=== PATIENT | male | born 1945 | race Caucasian/White ===

== ENCOUNTER 2020-07-27 13:34 | Inpatient (IN) | payer MEDICARE, BC ==
[~2020-07-27] VITALS: Ht 172.7 cm; Wt 71.4 kg
[~2020-07-27 13:34] MED LIST: BAYER CHEWABLE81 MG PO; HEMOCYTE PLUS C1 CAP PO; LOPRESSOR25 MG PO; MUCINEX DM ER1 EAC1 PO; PERCOCET 5-3251 TAB PO; ULTRAM50 MG PO
[2020-07-31 08:38] LABS: CALC OSMOLALITY 277 mosm/kg (275-300); CALCIUM 8.9 mg/dL (8.5-10.1); CARBON DIOXIDE 28.7 mmol/L (21.0-32.0); CHLORIDE - SERUM 105 mmol/L (98-107); CREATININE - SERUM 0.9 mg/dL (0.6-1.3); GLUCOSE 83 mg/dL (74-106); POTASSIUM - SERUM 3.8 mmol/L (3.5-5.1); SODIUM 138 mmol/L (136-145); UREA NITROGEN 20 mg/dL (7-18); eGFR NON AFRICAN AMERICAN 88 mL/min (90-120)
[2020-07-31 08:54] LABS: BASOPHILS 0.7 % (0-2); EOSINOPHILS 3.6 % (0-7); HEMATOCRIT 38.7 % (42.0-54.0); HEMOGLOBIN 12.7 g/dL (13.5-17.5); LYMPHOCYTES 38.4 % (15-50); MCH 28.3 pg (26.0-34.0); MCHC 32.7 g/dL (31.0-37.0); MCV 86.6 fL (80.0-100.0); MEAN PLATELET VOLUME 7.8 fL (7.4-10.4); MONOCYTES 11.6 % (2-11); NEUTROPHILS 45.7 % (40-80); RBC 4.47 10x6/uL (4.20-6.10); RDW 14.9 % (11.5-14.5); WBC 3.3 10x3/uL (4.8-10.8)
[2020-07-31 09:24] LABS: PLATELET COUNT 170 10x3/uL (130-400)
[2020-07-31] MEDS ORDERED: LOPRESSOR25 MG (10:07)
[2020-08-01] VITALS (7 sets, daily range): BP systolic 125–148; BP diastolic 67–86; Ht 172.7 cm; Wt 71.4 kg
[2020-08-02] VITALS: BP 111/56
--- NOTE | 2020-08-02 03:13 | NUR ---
I have reviewed this patient and I concur with the Shift Assessment completed by the Licensed Practical Nurse today this shift.
[2020-08-02 04:00] VITALS: BP 118/63
[2020-08-02 06:13] LABS: BASOPHILS 0.4 % (0-2); EOSINOPHILS 0 % (0-7); HEMATOCRIT 36.4 % (42.0-54.0); HEMOGLOBIN 12.3 g/dL (13.5-17.5); LYMPHOCYTES 13.7 % (15-50); MCH 29.2 pg (26.0-34.0); MCHC 33.8 g/dL (31.0-37.0); MCV 86.2 fL (80.0-100.0); MEAN PLATELET VOLUME 8.2 fL (7.4-10.4); MONOCYTES 3.3 % (2-11); NEUTROPHILS 82.6 % (40-80); PLATELET COUNT 142 10x3/uL (130-400); RBC 4.22 10x6/uL (4.20-6.10); RDW 14.6 % (11.5-14.5)
[2020-08-02 06:19] LABS: WBC 8.9 10x3/uL (4.8-10.8)
[2020-08-02 06:27] LABS: CALC OSMOLALITY 276 mosm/kg (275-300); CALCIUM 8.1 mg/dL (8.5-10.1); CARBON DIOXIDE 24.6 mmol/L (21.0-32.0); CHLORIDE - SERUM 104 mmol/L (98-107); CREATININE - SERUM 0.9 mg/dL (0.6-1.3); GLUCOSE 99 mg/dL (74-106); POTASSIUM - SERUM 3.9 mmol/L (3.5-5.1); SODIUM 138 mmol/L (136-145); eGFR NON AFRICAN AMERICAN 88 mL/min (90-120)
[2020-08-02 06:28] LABS: UREA NITROGEN 14 mg/dL (7-18)
[2020-08-02 08:25] VITALS: BP 128/70
--- NOTE | 2020-08-02 08:25 | NUR ---
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
--- NOTE | 2020-08-02 11:31 | NUR ---
MEDEIROS REMOVED, TIP INTACT, PT TOLERATED WELL, 1700mL OUT
[2020-08-02 12:58] VITALS: BP 114/65
--- NOTE | 2020-08-02 14:32 | NUR ---
PT WITH PT NOW
[2020-08-02 17:47] VITALS: BP 142/81
[2020-08-02 20:00] VITALS: BP 148/80
--- NOTE | 2020-08-03 02:54 | NUR ---
PT IS AWAKE AND ALERT IN BED. HE COMPLAIN OF PAIN IN HIS LOWER BACK AND INCISION, PT WAS HELP TO REPOSITION IN BED AND HE OBTAINED SOME RELIEF. PT EXPRESS NO OTHER NEEDS AT THE MOMENT.
[2020-08-03 04:00] VITALS: BP 125/67
[2020-08-03 05:58] LABS: BASOPHILS 0.4 % (0-2); EOSINOPHILS 0.4 % (0-7); HEMATOCRIT 35.2 % (42.0-54.0); HEMOGLOBIN 11.7 g/dL (13.5-17.5); LYMPHOCYTES 13.9 % (15-50); MCH 28.7 pg (26.0-34.0); MCHC 33.2 g/dL (31.0-37.0); MCV 86.5 fL (80.0-100.0); MEAN PLATELET VOLUME 8.1 fL (7.4-10.4); MONOCYTES 5.7 % (2-11); NEUTROPHILS 79.6 % (40-80); PLATELET COUNT 134 10x3/uL (130-400); RBC 4.06 10x6/uL (4.20-6.10); RDW 14.8 % (11.5-14.5)
[2020-08-03 06:16] LABS: CALC OSMOLALITY 273 mosm/kg (275-300); CALCIUM 8.1 mg/dL (8.5-10.1); CARBON DIOXIDE 24.8 mmol/L (21.0-32.0); CHLORIDE - SERUM 104 mmol/L (98-107); CREATININE - SERUM 0.8 mg/dL (0.6-1.3); GLUCOSE 78 mg/dL (74-106); POTASSIUM - SERUM 3.7 mmol/L (3.5-5.1); SODIUM 137 mmol/L (136-145); UREA NITROGEN 15 mg/dL (7-18); eGFR NON AFRICAN AMERICAN > 90 mL/min (90-120)
--- NOTE | 2020-08-03 07:46 | NUR ---
PT LAYING IN BED RESTING WITH EYES CLOSED, NO SIGNS OF DISTRESS, RECEIVED REPORT FROM NIGHT RN
[2020-08-03 08:25] VITALS: BP 118/78
--- NOTE | 2020-08-03 11:16 | NUR ---
PATIENT WALKED 250 FEET WHILE PUSHING IV POLE WITH JUST CGA-SBA FOR SAFETY.
[2020-08-03 13:01] VITALS: BP 122/70
[2020-08-03 17:18] VITALS: BP 109/76
[2020-08-03 20:00] VITALS: BP 143/85
[2020-08-04] VITALS: BP 143/85
[2020-08-04 04:00] VITALS: BP 144/84
[2020-08-04 06:22] LABS: BASOPHILS 0.5 % (0-2); HEMOGLOBIN 11.6 g/dL (13.5-17.5); LYMPHOCYTES 22.1 % (15-50); MCH 29.2 pg (26.0-34.0); MCHC 34.1 g/dL (31.0-37.0); MCV 85.5 fL (80.0-100.0); MONOCYTES 6.4 % (2-11); PLATELET COUNT 142 10x3/uL (130-400); RBC 3.98 10x6/uL (4.20-6.10); RDW 14.7 % (11.5-14.5)
[2020-08-04 06:30] LABS: CALC OSMOLALITY 268 mosm/kg (275-300); CHLORIDE - SERUM 102 mmol/L (98-107); CREATININE - SERUM 0.7 mg/dL (0.6-1.3); GLUCOSE 82 mg/dL (74-106); POTASSIUM - SERUM 3.2 mmol/L (3.5-5.1); SODIUM 135 mmol/L (136-145); UREA NITROGEN 12 mg/dL (7-18); eGFR NON AFRICAN AMERICAN > 90 mL/min (90-120)
[2020-08-04 06:31] LABS: CALCIUM 8.3 mg/dL (8.5-10.1); CARBON DIOXIDE 25.6 mmol/L (21.0-32.0)
[2020-08-04 08:15] VITALS: BP 147/79
--- NOTE | 2020-08-04 09:28 | OP ---
PATIENT NAME: ROMA CORBIN MEDICAL RECORD: [id number] :45 LOCATION:[id number] ADMISSION DATE:08/01/20 SURGEON: DEVON CEJA MD DATE OF OPERATION: 08/01/2020 PREOPERATIVE DIAGNOSES: 1. Rectosigmoid cancer. 2. Coronary artery disease. 3. Umbilical hernia. POSTOPERATIVE DIAGNOSES: 1. Rectosigmoid cancer. 2. Coronary artery disease. 3. Umbilical hernia. PROCEDURE: Low anterior resection. SURGEON: Devon Ceja MD DESCRIPTION OF PROCEDURE: The patient's abdomen was prepped and draped in sterile fashion. Incision was made through the midline of the lower abdomen. Electrocautery was used to dissect through the subcutaneous tissues and entered the fascia into the abdominal cavity. The patient did have a small umbilical hernia and this was incorporated in our incision. As we opened up the abdominal cavity, we could immediately see the tattooing of the proximal rectum and a mass that was present at the rectosigmoid junction and proximal rectum. This was tethering in the tissues of the rectum, but was not adherent to any surrounding structures. We cleared off an area on the mid rectum and took down any fatty adhesions that were present. Once we did this, then we made an opening on the mesorectum and fired a 45 blue load Endo-ISAIAH stapler across the mid rectum. We then took down the mesentery using a sequential clamp and tie technique, taking down the superior hemorrhoidal vessel and eventually came to the mid sigmoid colon and transected the bowel using a 45 blue load ISAIAH stapler. Once we had the bowel completely excluded from the surrounding tissues, then it was sent off for permanent specimen. The distal aspect of the lateral white line of Toldt was taken down and we mobilized the distal colon medially. At this point, it would rest easily into the patient's pelvis. We then opened up the distal colon, placed a 2-0 Prolene in a pursestring fashion and then inserted a 29 EEA stapler. The multiple dilators were placed through the patient's rectum and we eventually placed the 29 EEA stapler. An end-to-end anastomosis was performed with the stapler and at the conclusion of this we had 2 complete rings of tissue. We then checked the anastomosis under water by instilling air through the rectum and there were no signs of any leakage. I then oversew the staple line using a number of Lemberted 3-0 silks. The abdomen was then irrigated out with normal saline and care was taken to assure there was no sign of any bleeding. The fascia was then closed with running #1 looped PDS times 2 including the small umbilical hernia. The subcutaneous tissues were irrigated out and then reapproximated with interrupted 3-0 Vicryl. The umbilicus was tacked down to the fascia with a single interrupted 3-0 Vicryl. The skin was closed with zulma and dressed appropriately. COMPLICATIONS: None. CONDITION: Stable. OPERATIVE REPORT [id number] ROMA CORBIN ANESTHESIA: General endotracheal. BLOOD LOSS: 50 mL. TRANSINT:[id number] Voice Confirmation ID: [id number] DOCUMENT ID: [id number] DEVON CEJA MD at 0928 CC: GUERO VEGA MD and MIGUEL A VALERO DO [id number] DICTATION DATE: 08/01/20957 DIGITAL CONTROLS TECHNICAL OFFICER: 08/01/[address] [facility] [address] [place] [address]
[2020-08-04] MEDS ORDERED: HYDROCODON-ACE1 EA10 PO (11:32)
[2020-08-04 11:43] VITALS: BP 134/80
--- NOTE | 2020-08-04 13:55 | NUR ---
DISCHARGE INSTRUCTIONS REVIEWED AND SIGNED WITH PT AND SPOUSE, ALL QUESTIONS ANSWERED, PT VERBALIZES UNDERSTANDING, IV REMOVED, TIP INTACT, COVERED WITH GAUZE AND TAPE, TRANSPORT CALLED TO ASSIST PT OUT
--- NOTE | 2020-08-04 14:36 | NUR ---
walked patient 250 feet using ivpole patient had no alarm in the bed
--- NOTE | 2020-08-04 14:41 | MORECARE ---
CASE MANAGEMENT DISCHARGE SUMMARY PATIENT: ROMA CORBIN UNIT: [id number] ADM DATE: 08/01/20 AGE: 74 : 45 SEX: M ROOM/BED: D.2234 AUTHOR: ANITHA,DOC PHYSICIAN: REFERRING PHYSICIAN: ELIE CEJA MD DATE OF SERVICE: 08/04/20 Case Management Discharge Planning Summary COMMENTS ENTERED DATE: 08/04/20 14:41 CT COMMENT TYPE: Discharge Planning REVIEWER: Yuki Jeff PATIENT DISCHARGED HOME TODAY, PER HIS NURSE HE IS INDEPENDENT WITH HIS CARE AND DENIES ANY NEEDS FROM A CM STANDPOINT. IMM SERVED AND COPY PLACED IN CHART DCP REVIEW SUMMARY ANTICIPATED D/C DATE: EXPECTED LOS : CASE STATUS: DCP Initiated INITIAL REVIEW: 08/01/2020 INITIAL REVIEWER: Yuki Jeff FINAL DISCHARGE DISPOSITION: : FINAL REVIEWER: FINAL REVIEW DATE: DCP Focus Questions & Answers QUESTION: ANSWER : PATIENT: ROMA CORBIN ENCOUNTER: [id number] MEDICAL RECORD#: [id number] ADMISSION DATE: 08/01/2020 DISCHARGE DATE: ATTENDING MD: ELIE GARCIA : AGE: 74 MARITAL STATUS: M DC PLAN ID: [id number] FACILITY: [facility] PRINTED ON: 08/04/20 14:41 CT All edits/amendments must be made on the electronic document DICTATION DATE: 08/04/201440 PERFUSIONIST: MARIELENA 08/04/201440 RPT#: [id number] DC DATE: STATUS: ADM IN [facility] [address] [place] [address] END OF REPORT
--- NOTE | 2020-08-07 09:31 | MORECARE ---
CASE MANAGEMENT DISCHARGE SUMMARY PATIENT: ROMA CORBIN UNIT: [id number] ADM DATE: 08/01/20 AGE: 74 : 45 SEX: M ROOM/BED: D.2234 AUTHOR: ANITHA,DOC PHYSICIAN: REFERRING PHYSICIAN: ELIE CEJA MD DATE OF SERVICE: 08/07/20 Case Management Discharge Planning Summary COMMENTS ENTERED DATE: 08/04/20 14:41 CT COMMENT TYPE: Discharge Planning REVIEWER: Yuki Jeff PATIENT DISCHARGED HOME TODAY, PER HIS NURSE HE IS INDEPENDENT WITH HIS CARE AND DENIES ANY NEEDS FROM A CM STANDPOINT. IMM SERVED AND COPY PLACED IN CHART DCP REVIEW SUMMARY ANTICIPATED D/C DATE: EXPECTED LOS : CASE STATUS: DCP Initiated INITIAL REVIEW: 08/01/2020 INITIAL REVIEWER: Yuki Jeff FINAL DISCHARGE DISPOSITION: : FINAL REVIEWER: FINAL REVIEW DATE: DCP Focus Questions & Answers QUESTION: ANSWER : PATIENT: ROMA CORBIN ENCOUNTER: [id number] MEDICAL RECORD#: [id number] ADMISSION DATE: 08/01/2020 DISCHARGE DATE: 08/04/2020 ATTENDING MD: ELIE GARCIA : AGE: 74 MARITAL STATUS: M DC PLAN ID: [id number] FACILITY: [facility] PRINTED ON: 08/07/20 9:31 CT All edits/amendments must be made on the electronic document DICTATION DATE: 08/07/20930 MIXED LIVESTOCK FARM WORKER: MARIELENA 08/07/20930 RPT#: [id number] DC DATE:08/04/20 STATUS: DIS IN [facility] [address] [place] [address] END OF REPORT
== END 2020-08-04 15:00 | disposition home or self-care (01) | DRG 334 ==
LOC: D.MS 08-01 05:50 → D.SDCHOLD 08-01 05:50 → D.MS 08-01 10:28
PROVIDERS: ADMIT Surgery; ATTEND Surgery
PROC: 0DTP0ZZ Resection of Rectum, Open Approach (ICD-10-PCS; principal; 2020-08-01 08:00)
DX: C19 Malignant neoplasm of rectosigmoid junction (principal); I25.10 Atherosclerotic heart disease of native coronary artery without angina pectoris; K42.9 Umbilical hernia without obstruction or gangrene; I10 Essential (primary) hypertension; Z87.891 Personal history of nicotine dependence; E87.6 Hypokalemia